=== PATIENT | female | born 1980 | race Caucasian/White ===

== ENCOUNTER 2023-05-18 16:28 | Emergency (ER) | payer BC ==
[2023-05-18 16:48] VITALS: BMI 23.0
[2023-05-18 18:55] LABS: URINE APPEARANCE CLEAR; URINE BILIRUBIN NEGATIVE (NEGATIVE); URINE COLOR YELLOW; URINE GLUCOSE (UA) NEGATIVE (NEGATIVE); URINE KETONE NEGATIVE (NEGATIVE); URINE LEUK ESTERASE NEGATIVE (NEGATIVE); URINE NITRITE NEGATIVE (NEGATIVE); URINE PROTEIN NEGATIVE (NEGATIVE); URINE UROBILINOGEN 0.2 mg/dL (0.2-1.0)
[2023-05-18 18:59] LABS: PHENCYCLIDINE,URINE NEGATIVE (NEGATIVE)
[2023-05-18 19:00] LABS: METHADONE, UR NEGATIVE (NEGATIVE); OPIATES, URI NEGATIVE (NEGATIVE); URINE AMPHETAMINES NEGATIVE (NEGATIVE); URINE BENZODIAZEPINES NEGATIVE (NEGATIVE)
[2023-05-18 19:01] LABS: COCAINE, UR NEGATIVE (NEGATIVE)
[2023-05-18 19:02] LABS: URINE BARBITURATES NEGATIVE (NEGATIVE)
[2023-05-18 20:32] LABS: BASO % 0.4 % (0-2.0); HEMATOCRIT 38.4 % (32.4-45.2); HEMOGLOBIN 12.7 GM/dL (10.7-15.3); LYMPH % 29.5 % (8-40); MCH 30.3 pg (25.7-33.7); MCHC 33.1 g/dl (32.0-36.0); MEAN CELL VOLUME 91.4 fl (80-96); MEAN PLT VOLUME 8.9 fl (7.5-11.1); MONO % 7.8 % (3.8-10.2); NEUT % 61.3 % (42.8-82.8); PLATELET COUNT 209 10^3/uL (134-434); RDW 13.2 % (11.6-15.6); WHITE BLOOD COUNT 7.3 K/mm3 (4.0-10.0)
[2023-05-18 20:46] LABS: INR 0.95 (0.83-1.09)
[2023-05-18 20:54] LABS: CHLORIDE 102 mmol/L (98-107); POTASSIUM 3.9 mmol/L (3.5-5.1); SODIUM 133 mmol/L (136-145)
[2023-05-18 20:56] LABS: ANION GAP 8 mmol/L (4-13); CO2 23 mmol/L (21-32)
[2023-05-18 20:57] LABS: ALBUMIN 3.9 g/dl (3.4-5.0); GLUCOSE,RANDOM 117 mg/dL (74-106)
[2023-05-18 20:59] LABS: CREATININE 0.7 mg/dL (0.55-1.3); SGOT/AST 9 U/L (15-37); SGPT/ALT 15 U/L (13-61)
[2023-05-18 21:01] LABS: BILIRUBIN,TOTAL 0.3 mg/dL (0.2-1); TOT PROT 7.6 g/dl (6.4-8.2)
[2023-05-18 21:02] LABS: ALK PHOS 71 U/L (45-117)
[2023-05-19] MEDS: risperiDONE 2 MG TABLET PO ONE (11:33)
[2023-05-19 11:34] VITALS: BP 113/72; PULSE 99; RESP 20; TEMP 98.2
== END 2023-05-19 11:41 | disposition short-term general hospital (02) ==
LOC: JER 16:28
DX: R44.0 Auditory hallucinations (principal); R44.1 Visual hallucinations; R44.2 Other hallucinations; R63.0 Anorexia; M32.9 Systemic lupus erythematosus, unspecified; Z20.822 Contact with and (suspected) exposure to COVID-19
CPT/HCPCS: 0241U-QW; 36415; 80053; 80307; 81003; 84703; 85025; 85610; 85730; 87086; 99285-25